=== PATIENT | male | born 1995 | race African-American/Black ===

== ENCOUNTER 2025-06-22 15:18 | Emergency (ER) | payer OTHER ==
[~2025-06-22] VITALS: Ht 182.9 cm; Wt 100.0 kg
[2025-06-22 15:22] VITALS: BP 144/100; PULSE 120; RESP 16; TEMP 36.8; O2SAT 98
== END 2025-06-22 15:45 | disposition left against medical advice (07) ==
LOC: ER 15:18
DX: R41.82 Altered mental status, unspecified (principal); F20.9 Schizophrenia, unspecified
CPT/HCPCS: 99283

== ENCOUNTER 2025-06-23 21:23 | Emergency (ER) | payer OTHER ==
[~2025-06-23] VITALS: Ht 180.3 cm; Wt 100.1 kg
[2025-06-23 21:32] VITALS: BP 150/95; PULSE 120; RESP 16; TEMP 36.7; O2SAT 99
[2025-06-24 00:51] LABS: INFLUENZA TYPE A Presumptive Negative (Pres. Neg.)
[2025-06-24 00:52] LABS: INFLUENZA TYPE B Presumptive Negative (Pres. Neg.)
== END 2025-06-24 00:51 | disposition home or self-care (01) ==
LOC: ER 21:23
DX: F10.129 Alcohol abuse with intoxication, unspecified (principal); R07.9 Chest pain, unspecified; Z20.822 Contact with and (suspected) exposure to COVID-19; Y90.9 Presence of alcohol in blood, level not specified
CPT/HCPCS: 82962; 87426; 87804; 93005; 99284

== ENCOUNTER 2025-06-24 00:39 | Emergency (ER) | payer OTHER ==
[~2025-06-24] VITALS: Ht 180.3 cm; Wt 100.1 kg
[2025-06-24 00:47] VITALS: BP 136/73; PULSE 108; RESP 16; TEMP 36.8; O2SAT 98
[2025-06-24] MEDS: SODIUM CHLORIDE 0.9% 1,000 ML IV ONE (01:54)
== END 2025-06-24 03:09 | disposition home or self-care (01) ==
LOC: ER 00:39
DX: F10.129 Alcohol abuse with intoxication, unspecified (principal); Y90.9 Presence of alcohol in blood, level not specified
CPT/HCPCS: 99282; J7030